=== PATIENT | male | born 1970 | race Caucasian/White ===

== ENCOUNTER 2020-07-26 07:31 | Day surgery (SDC) | payer BC, SELFPAY ==
[2020-07-18 20:03] VITALS: BMI 30.4
--- NOTE | 2020-07-25 08:35 | HO.ANESPROP2 ---
Documented by User: Nichole Quinteros 07/25/20 08:39 HPI - Anesthesia Eval Consult details Narrative: 50yo M for Colonoscopy [facility] Past Medical History Medical History [place] disease Back pain Insomnia Reactive depression Surgical History Surgical History No significant past surgical history Social History Social History Smoking Status: Never smoker Second Hand Smoke Exposure: No Use of substances other than those prescribed or required for medical reasons: No Advance Directives: No Advance Directives Information Provided: No Advance Directives on File: No Recently lost weight without trying: No Meds Allergies Allergy/AdvReac Type Severity Reaction Status Date / Time No Known Allergies Allergy Verified 07/18/20 19:50 Home Medications Medication Instructions Recorded Confirmed Type bupropion HCl 150 mg PO BID 07/18/20 07/18/20 History fludrocortisone 1 tab PO QAM 07/18/20 07/18/20 History hydrocortisone 30 mg PO DAILY 07/18/20 07/18/20 History Exam Exam Date and Time: July 25, 2020 0835 Height,Weight and Vital Signs: Height 6 ft 4 in Weight 113.398 kg Assessment and Plan Assessment Anesthesia Assessment: Chart Reviewed Documented by User: Dung Huber 07/26/20 07:48 [facility] Past Medical History Medical History [place] disease Back pain Insomnia Reactive depression Surgical History Surgical History No significant past surgical history Social History Social History Smoking Status: Never smoker Second Hand Smoke Exposure: No Use of substances other than those prescribed or required for medical reasons: No Advance Directives: No Advance Directives Information Provided: No Advance Directives on File: No Recently lost weight without trying: No Meds Allergies Allergy/AdvReac Type Severity Reaction Status Date / Time No Known Allergies Allergy Verified 07/18/20 19:50 Home Medications Medication Instructions Recorded Confirmed Type bupropion HCl 150 mg PO BID 07/18/20 07/18/20 History fludrocortisone 1 tab PO QAM 07/18/20 07/18/20 History hydrocortisone 30 mg PO DAILY 07/18/20 07/18/20 History Exam Airway Mallampati Class: II TM Dist: >3cm Neck ROM: Full
[2020-07-26 07:48] VITALS: BP 126/86; PULSE 77; RESP 16; TEMP 36.2; O2SAT 96
[2020-07-26] MEDS: Lactated Ringers 1,000 ML 100 ML IVCONT (07:58)
--- NOTE | 2020-07-26 08:27 | P.HPSUR_ITS ---
Pre-Procedural Eval Section B Chief Complaint: SCREENING Relevant Family History (Specify if Yes): No Relevant Social History: None Present Medications: see Short Stay Collaborative assessment Medical History: Significant History ([place] disease . Anxiety. Insomnia, unspecified type . Reactive depression. Nocturia. Psoriasis. ) History of Previous Operations: No relevant previous surgery Allergies: Allergies Allergy/AdvReac Type Severity Reaction Status Date / Time No Known Allergies Allergy Verified 07/18/20 19:50 Review of Systems Sugical H&P ROS: Negative: Constitution, Cardiovascular, Respiratory and Gastrointestinal Exam Surgical H&P Exam: Normal: Heart, Normal: Lungs, Normal: Extremities and Normal: Abdomen Plan Diagnosis/Plan: Unchanged I have reviewed the history and physical and performed a pertinent physical examination on my patient. No changes have occurred unless specified.
--- NOTE | 2020-07-26 08:27 | W.PM.OPN ---
Operative Note Operative Note Date of Service: 07/26/20 Narrative: Pre-op diagnosis: colon cancer screening Post-op diagnosis: other (Colon polyp, hemorrhoids) Procedure: COLONOSCOPY TILL CECUM WITH BIOPSY Consent: Indications for the procedure and potential complications of bleeding, perforation, reaction to medications and missed diagnosis were discussed with the patient and informed consent was obtained. Instrument: Olympus PCF H 190 L variable stiffness pediatric colonoscope Monitoring: Vital signs and clinical assessment, intermittent blood pressure monitoring, continuous EKG monitoring, Pulse oximetry and Carbon Dioxide monitoring were done throughout the procedure. Colon withdrawl time was 20 minutes. Procedure: The patient was placed in the left lateral decubitis position and pre-procedure medications were administered. After a digital rectal examination of the ano-rectum, the video colonoscope was inserted into the rectum and advanced through the colon to the cecum. The colonoscope was slowly withdrawn in a retrograde panoramic fashion and the colon mucosa was carefully examined including a retroflexed view of the rectum. Findings and interventions are described below. Procedure Difficulty: Without difficulty Findings: Terminal Ileum: Not evaluated Cecum: Normal Ascending Colon: A 4-5 mm sessile polyp in distal AC removed with a cold bx. Transverse Colon: Normal Descending Colon: Normal Sigmoid Colon: Normal Rectum: Normal Ano-rectum: Moderate internal hemorrhoids Colon preparation: Good after some irrigation Impression and Post Procedure Diagnosis: Colonoscopy Findings: One small polyps removed Moderate hemorrhoids on retroflexed exam. Plan: Await pathology results Patient has an appointment on 08/23/20 in the GI Clinic with RIVAS Corbett. Repeat Colonoscopy interval based on path results - in 5 years if polyp is adenomatous and 10 years if polyp is hyperplastic. Above findings were reviewed with the patient and colon polyps handout was given in the discharge area Surgeon: Cinthya Soto MD Anesthesia: MAC (Darlene Delarosa CRNA) Estimated blood loss (mL): 0 Pathology: other (A. AC polyp x 1) Condition: stable Disposition: PACU
[2020-07-26 09:10] VITALS: BP 123/64; PULSE 69; RESP 16; TEMP 36.1; O2SAT 94
[2020-07-26 09:25] VITALS: BP 118/53; PULSE 80; RESP 16; O2SAT 97
[2020-07-26 09:40] VITALS: BP 115/72; PULSE 75; RESP 16; TEMP 36.1; O2SAT 96
--- NOTE | 2020-07-26 10:08 | HO.POSTANES ---
Post Anesthesia Evaluation Post Anesthesia Evaluation Vital Signs: Vital Signs Temp Pulse Resp BP Pulse Ox 07/26/20 09:40 96.9 F 75 16 115/72 96 07/26/20 09:25 80 16 118/53 L 97 07/26/20 09:10 97.0 F 69 16 123/64 94 07/26/20 07:48 97.2 F 77 16 126/86 96 Anesthesia: Monitored Mental Status: Awake Pain Control: Satisfactory Nausea/Vomiting: None Hydration: Adequate Anesthesia-Related Issues: No Anes. Related Issues
== END 2020-07-26 10:05 | disposition home or self-care (01) ==
PROVIDERS: Visit Provider Internal Medicine Gastroenterology
PROC: 0DJD8ZZ Inspection of Lower Intestinal Tract, Via Natural or Artificial Opening Endoscopic (ICD-10-PCS; CPT 45378; principal; 2020-07-26 08:30)
DX: Z12.11 Encounter for screening for malignant neoplasm of colon (principal); D12.2 Benign neoplasm of ascending colon; K64.8 Other hemorrhoids; E27.1 Primary adrenocortical insufficiency; G47.00 Insomnia, unspecified; F32.9 Major depressive disorder, single episode, unspecified; Z79.52 Long term (current) use of systemic steroids; Z79.899 Other long term (current) drug therapy
CPT/HCPCS: 45380; 88305

== ENCOUNTER 2021-08-15 11:09 | Outpatient (REF) | payer BC, SELFPAY ==
[2021-08-15 13:45] LABS: MANUAL DIFF FLAG NO
[2021-08-15 13:51] LABS: Basophils Absolute Auto 0.1 X10*3/uL (0.0-0.2); Eosinophils Absolute Auto 0.2 X10*3/uL (0.0-0.4); Eosinophils Percent Auto 3.3 % (0-4); Hematocrit 45.8 % (42.0-52.0); Hemoglobin 15.6 g/dl (14.0-18.0); Imm Gran Abs Auto 0.04 X10*3/uL (0.00-0.03); Imm Gran Pct Auto 0.6 % (0.0-0.4); Lymphocytes Absolute Auto 2.7 X10*3/uL (1.2-4.9); Lymphocytes Percent Auto 39.2 % (20-40); Mean Corpuscular HGB Conc 34.1 g/dl (31.0-36.0); Mean Corpuscular Hemoglobin 28.7 pg (27.0-33.0); Mean Corpuscular Volume 84.2 fL (80.0-98.0); Mean Platelet Volume 9.8 fL (9.4-12.4); Monocytes Absolute Auto 0.9 X10*3/uL (0.1-1.2); Monocytes Percent Auto 12.4 % (2-11); Neutrophils Percent Auto 43.5 % (45-73); Platelet Count 257 X10*3/uL (160-400); Red Blood Count 5.44 X10*6/uL (4.60-5.80); Red Cell Distribution Width 11.9 % (11.0-16.0)
[2021-08-15 14:59] LABS: Alanine Aminotransferase 87 U/L (0-40); Alkaline Phosphatase 71 U/L (39-117); Anion Gap 11 (12-20); Aspartate Amino Transferase 184 U/L (5-37); Bilirubin Total 0.9 mg/dL (0.0-1.0); Blood Urea Nitrogen 18 mg/dL (9-16); Calcium 9.3 mg/dL (8.4-10.2); Carbon Dioxide 28 mmol/L (22-29); Chloride 102 mmol/L (96-108); Estimated Glomerular Filt Rate > 60; Glucose Random 90 mg/dL (60-115); Potassium 4.3 mmol/L (3.3-5.1); Sodium 137 mmol/L (135-145); Total Protein 6.9 g/dL (6.5-8.0)
== END 2021-08-15 11:10 | disposition home or self-care (01) ==
LOC: HO.HMGCLDS 11:09
PROVIDERS: PCP Internal Medicine; Visit Provider Internal Medicine
DX: E27.1 Primary adrenocortical insufficiency (principal); F33.9 Major depressive disorder, recurrent, unspecified
CPT/HCPCS: 36415; 80053; 85025

== ENCOUNTER 2022-08-28 13:26 | Outpatient (REF) | payer BC, SELFPAY ==
[2022-08-28 16:54] LABS: Alanine Aminotransferase 25 U/L (0-40); Albumin Level 4.3 g/dL (3.5-5.0); Alkaline Phosphatase 71 U/L (39-117); Anion Gap 14 (12-20); Aspartate Amino Transferase 25 U/L (5-37); Blood Urea Nitrogen 19 mg/dL (9-16); Calcium 9.2 mg/dL (8.4-10.2); Carbon Dioxide 26 mmol/L (22-29); Chloride 101 mmol/L (96-108); Estimated Glomerular Filt Rate > 60; Glucose Random 85 mg/dL (60-115); Potassium 4.7 mmol/L (3.3-5.1); Sodium 136 mmol/L (135-145); Total Protein 7.1 g/dL (6.5-8.0)
== END 2022-08-28 13:27 | disposition home or self-care (01) ==
LOC: HO.HMGCLDS 13:26
PROVIDERS: PCP Internal Medicine; Visit Provider Internal Medicine
DX: E27.1 Primary adrenocortical insufficiency (principal); F33.9 Major depressive disorder, recurrent, unspecified; R79.89 Other specified abnormal findings of blood chemistry
CPT/HCPCS: 36415; 80053

== ENCOUNTER → 2022-11-01 10:36 | Outpatient (BNVA) | payer BC, SELFPAY | PROVIDERS: PCP Internal Medicine; Visit Provider Nurse Practitioner Family | DX: Z13.89 Encounter for screening for other disorder (principal) ==

== ENCOUNTER 2023-01-03 15:58 | Outpatient (REF) | payer BC, SELFPAY ==
--- NOTE | ~2023-01-03 | MR_ITS ---
EXAMINATION: MR BRAIN WITHOUT AND WITH CONTRAST CLINICAL INFORMATION: Headache, new onset visual aura, tinnitus, hearing loss COMPARISON: None. TECHNIQUE: Multiplanar, multisequence imaging was obtained without and with intravenous contrast. Intravenous contrast: 10 mL Gadavist. FINDINGS: Some sequences are motion degraded. The VII and VIII cranial nerve complexes are normal in course and caliber. No signal abnormality is visualized within the inner ear structures on the precontrast axial T1-weighted sequence. Fluid signal is preserved within the cochlea, semicircular canals, and vestibule on the high-resolution axial FIESTA sequence. There is no abnormal labyrinthine or intracanalicular enhancement on postcontrast imaging. No cerebellopontine angle lesion. No acute infarct. No acute intracranial hemorrhage or extra-axial fluid collection. The ventricles and sulci are normal in size and configuration without significant volume loss or hydrocephalus. Incidental cavum septum pellucidum et vergae. No abnormal intraparenchymal or leptomeningeal enhancement. No mass effect or herniation pattern. Normal appearance of the midline structures. Normal intracranial arterial and dural venous sinus flow voids. The orbits are grossly unremarkable. Patchy paranasal sinus mucosal disease. Retention cyst within the left paramedian nasopharynx and additional smaller nasopharyngeal retention cyst. A few bilateral mastoid air cells are opacified. Partially imaged soft tissue along the base of tongue may reflect lingual tonsillar hyperplasia however can be correlated with direct inspection to exclude underlying mucosal lesion (image 15, series 3). The craniocervical junction is intact. Normal marrow signal. MR/MR head/brain wo/w con IMPRESSION: No retrocochlear pathology. No acute intracranial process or abnormal intracranial enhancement. Partially imaged soft tissue along the base of tongue may reflect lingual tonsillar hyperplasia however can be correlated with direct inspection to exclude underlying mucosal lesion (image 15, series 3).
== END 2023-01-03 15:59 | disposition home or self-care (01) ==
LOC: HO.MRI 15:58
PROVIDERS: PCP Internal Medicine; Visit Provider Nurse Practitioner Family
DX: R51.9 Headache, unspecified (principal); H53.9 Unspecified visual disturbance; H91.90 Unspecified hearing loss, unspecified ear; H93.19 Tinnitus, unspecified ear
CPT/HCPCS: 70553; A9585

== ENCOUNTER → 2023-01-17 15:06 | Outpatient (BNVA) | payer BC, SELFPAY | PROVIDERS: PCP Internal Medicine; Visit Provider Nurse Practitioner Family ==

== ENCOUNTER 2023-03-05 15:29 | Outpatient (AMB) | payer BC, SELFPAY ==
[2023-03-05 15:43] VITALS: BP 128/72; PULSE 88; O2SAT 95
--- NOTE | 2023-03-05 15:43 | MHC.PC.OV ---
Vital Signs 03/05/23 15:43 Height 6 ft 3 in BP 128/72 Blood Pressure Location Lt brachial Position Sitting Pulse 88 Pulse Source Pulse Oximeter Pulse Oximetry (%) 95 Oxygen Delivery Method Room Air Intake Visit Reasons: Annual PE Allergies No Known Allergies Allergy (Verified 03/05/23 15:43) Medication List - Last Reconciled 03/05/23 by Ayaan Smalls MD bupropion HCl 150 mg PO BID 90 days fludrocortisone 0.1 mg PO QAM 7 days Tobacco use date assessed: 03/05/23 Dental Screening Dental Screen Date: 03/05/23 Did you have a dental visit in the last 12 months?: Yes Did you have a dental problem in the last 6 months where you did not have access to dental care?: No Was dental information given to patient?: No HPI Annual PE HPI Details Physical exam appointment Colonoscopy was 3 years ago at [facility] next 1 will be in 2024 as but patient I was not able to locate the report. Seeing Dr. Plummer architectural draftsman for [place] disease management Neurology [facility] for migraine and possible sleep apnea Patient was referred to ENT due to abnormal finding back off his tongue on MRI brain. Awaiting appointment Lab order placed to be done fasting Depression is stable patient is on bupropion 150 mg b.i.d. that is only medication through PCP office Patient also have a chronic history of tinnitus and is getting disability through [facility] based on tinnitus. Follow-up 6 months physical exam 1 year [facility] Medical History [place] disease Addisons disease Back pain Insomnia Reactive depression Surgical History No significant past surgical history Social History Housing: House Alcohol intake: current Alcohol intake frequency: a few times a month Patient Tobacco Use Status: Never used Tobacco (23 years ) Years Smoked: 10 years e-Cigarette/Vaping Use: Never Used Second Hand Smoke Exposure: No service: Yes Current occupational status: employed Cognitive needs: No Hearing needs: No Vision needs: No Questionnaire PHQ-9 Over the last 2 weeks, how often have you been bothered by any of the following problems? 64695 - PHQ-9 Billing: Patient declined-do not bill Source: Developed by Drs. Jaren Dos Santos, Trina Hernandez, Wilman Mitchell and colleagues, with an educational vin from [employer]. Thrive Questionnaire Date Thrive assessed: 09/19/22 AUDIT C Alcohol Use Questionnaire (AUDIT-C) 1. How often do you have a drink containing alcohol?: 2-3 times a week 2. How many drinks containing alcohol do you have on a typical day when you are drinking?: 1 or 2 3. How often do you have six or more drinks on one occasion?: Never Total Score: 3 Score Reviewed/Action Taken: Yes ANTONELLA-7 AMB Questionnaire ANTONELLA-7 Date ANTONELLA - 7 assessed: 09/19/22 Source: Developed by Drs. Jaren Dos Santos, Trina Hernandez, Wilman Mitchell and colleagues, with an educational vin from [employer]. Review of Systems Const Denies chills, Denies fever(s) and Denies headache(s) Eyes Denies blurry vision ENT Denies headache(s), Denies nasal discharge, Denies nasal obstruction, Denies odynophagia and Denies sinus pain Card Denies chest pain at rest and Denies chest pain with activity Resp Denies cough and Denies hemoptysis GI Denies diarrhea, Denies odynophagia, Denies vomiting and Denies hematemesis Reports as per HPI Musc Denies abnormal gait Skin/Breast Reports as per HPI Neuro Denies Neuro-related abnormal movements, Denies Abnormal speech present, Denies abnormal gait, Denies headache(s) and Denies Sensory deficit (Neuro) Psych Denies mood swings and Denies paranoia Endo Reports as per HPI Darian/Lymph Reports as per HPI Aller/Immun Reports as per HPI Physical exam (Primary Care) Vital Signs: Last Vital Signs Pulse 88 03/05/23 15:43 BP 128/72 03/05/23 15:43 Pulse Ox 95 03/05/23 15:43 Oxygen Delivery Method Room Air 03/05/23 15:43 Tobacco/Smoking Status: Tobacco use Status Tobacco use date assessed 03/05/23 03/05/23 15:44 Patient Tobacco Use Status Never used Tobacco (23 years 03/05/23 15:44 ) e-Cigarette/Vaping Use Never Used 03/05/23 15:44 Thrive Assessment: Date of Thrive Assessment Date Thrive assessed 09/19/22 03/05/23 15:44 Const General: cooperative, comfortable and no acute distress Orientation/consciousness: patient oriented x3 HENMT Head: Yes normocephalic and Yes atraumatic Eyes General: appearance normal, both eyes and all related structures Pupils: Equal, round and reactive pupils present EOM: EOMs intact bilaterally Neck Neck: Yes supple and No lymphadenopathy Thyroid: Thyroid normal Lymphatic: no lymphadenopathy noted Resp Effort & Inspection: normal respiratory effort and able to speak in complete sentences Auscultation: clear to auscultation bilaterally Cardio Heart sounds: S1 normal heart sound present and S2 normal heart sound present GI Palpation (GI): Soft to palpation and nontender Auscultation: normal bowel sounds General: Yes no CVA tenderness Back/Spine/Pelvis Back: no CVA tenderness Skin General skin exam: elasticity normal and turgor normal Neuro General: patient oriented x3 and gait normal Cranial nerves: Yes Equal, round and reactive pupils present Speech: No Abnormal speech present Sensory Exam: No Sensory deficit (Neuro) Coordination: tandem gait normal and Romberg test negative Extrem General: Yes normal exam except as noted and No edema Assessment and Plan Assessment & Plan (1) Encounter for general adult medical examination with abnormal findings: Code(s): Z00.01 - Encounter for general adult medical examination with abnormal findings (2) Major depression, recurrent: Code(s): F33.9 - Major depressive disorder, recurrent, unspecified (3) [place] disease: Comment: Managed by a specialist Code(s): E27.1 - Primary adrenocortical insufficiency (4) Migraine headache with aura: Code(s): G43.109 - Migraine with aura, not intractable, without status migrainosus (5) Tinnitus: Code(s): H93.19 - Tinnitus, unspecified ear Plan Physical exam appointment Colonoscopy was 3 years ago at [facility] next 1 will be in 2024 as but patient I was not able to locate the report. Seeing Dr. Plummer architectural draftsman for [place] disease management Neurology [facility] for migraine and possible sleep apnea Patient was referred to ENT due to abnormal finding back off his tongue on MRI brain. Awaiting appointment Lab order placed to be done fasting Depression is stable patient is on bupropion 150 mg b.i.d. that is only medication through PCP office Patient also have a chronic history of tinnitus and is getting disability through [facility] based on tinnitus. Follow-up 6 months physical exam 1 year Orders: Orders Comprehensive Collins. Panel Fast Today E27.1 - Primary adrenocortical insufficiency, F33.9 - Major depressive disorder, recurrent, unspecified, G43.109 - Migraine with aura, not intractable, without status migrainosus, Z00.01 - Encounter for general adult medical examination with abnormal findings Ayaan Smalls MD Lipid Panel Today E27.1 - Primary adrenocortical insufficiency, F33.9 - Major depressive disorder, recurrent, unspecified, G43.109 - Migraine with aura, not intractable, without status migrainosus, Z00.01 - Encounter for general adult medical examination with abnormal findings Ayaan Smalls MD TSH reflex Free T4 Today E27.1 - Primary adrenocortical insufficiency, F33.9 - Major depressive disorder, recurrent, unspecified, G43.109 - Migraine with aura, not intractable, without status migrainosus, Z00.01 - Encounter for general adult medical examination with abnormal findings Ayaan Smalls MD Complete Blood Count Auto Diff Today E27.1 - Primary adrenocortical insufficiency, F33.9 - Major depressive disorder, recurrent, unspecified, G43.109 - Migraine with aura, not intractable, without status migrainosus, Z00.01 - Encounter for general adult medical examination with abnormal findings Ayaan Smalls MD Medications: New hydrocortisone 10 mg PO ONCE fludrocortisone 0.05 mg PO DAILY Discontinued fludrocortisone Discontinued Reason: Doctor's Order 0.1 mg PO QAM 7 tabs 0RF 7 days Ayaan Smalls MD Coding Level of Care Code Est Pt Prev Care 40-64y(09180) Diagnoses Encounter for general adult medical examination with abnormal findings Z00.01 Major depression, recurrent F33.9 [place] disease E27.1 Migraine headache with aura G43.109 Tinnitus H93.19
== END 2023-03-05 16:16 | disposition home or self-care (01) ==
PROVIDERS: Visit Provider Internal Medicine
DX: Z00.01 Encounter for general adult medical examination with abnormal findings (principal); F33.9 Major depressive disorder, recurrent, unspecified; E27.1 Primary adrenocortical insufficiency; G43.109 Migraine with aura, not intractable, without status migrainosus; H93.19 Tinnitus, unspecified ear
CPT/HCPCS: 99396

== ENCOUNTER 2023-04-04 08:29 | Outpatient (AMB) | payer BC, SELFPAY ==
--- NOTE | 2023-04-04 08:26 | A.OFFPC_ITS ---
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 that is only medication through PCP office how ever before the medication patient has been suicidal as well, as per history forms filled [facility] Medical History [place] disease [place] disease Back pain Insomnia Reactive depression Surgical History No significant past surgical history Social History Housing: House Alcohol intake: current Alcohol intake frequency: a few times a month Patient Tobacco Use Status: Never used Tobacco (23 years ) Years Smoked: 10 years e-Cigarette/Vaping Use: Never Used Second Hand Smoke Exposure: No service: Yes Current occupational status: employed Cognitive needs: No Hearing needs: No Vision needs: No Questionnaire Thrive Questionnaire Date Thrive assessed: 09/19/22 AUDIT C Alcohol Use Questionnaire (AUDIT-C) 1. How often do you have a drink containing alcohol?: Never 3. How often do you have six or more drinks on one occasion?: Never Total Score: 0 Score Reviewed/Action Taken: Yes ANTONELLA-7 AMB Questionnaire ANTONELLA-7 Date ANTONELLA - 7 assessed: 09/19/22 Source: Developed by Drs. Jaren Dos Santos, Trina Hernandez, Wilman Mitchell and colleagues, with an educational vin from [employer]. Review of Systems Const Denies chills, Denies fever(s) and Denies headache(s) Eyes Denies blurry vision ENT Denies headache(s), Denies nasal discharge, Denies nasal obstruction, Denies odynophagia and Denies sinus pain Card Denies chest pain at rest and Denies chest pain with activity Resp Denies cough and Denies hemoptysis GI Denies diarrhea, Denies odynophagia, Denies vomiting and Denies hematemesis Reports as per HPI Skin/Breast Reports as per HPI Neuro Denies Neuro-related abnormal movements, Denies Abnormal speech present, Denies headache(s) and Denies Sensory deficit (Neuro) Endo Reports as per HPI Darian/Lymph Reports as per HPI Aller/Immun Reports as per HPI Physical exam (Primary Care) Tobacco/Smoking Status: Tobacco use Status Tobacco use date assessed 04/04/23 04/04/23 08:27 Patient Tobacco Use Status Never used Tobacco (23 years 04/04/23 08:27 ) e-Cigarette/Vaping Use Never Used 04/04/23 08:27 Thrive Assessment: Date of Thrive Assessment Date Thrive assessed 09/19/22 04/04/23 08:27 Neuro Speech: No Abnormal speech present Sensory Exam: No Sensory deficit (Neuro) Telehealth Telehealth Location of provider rendering services: practice address Location of patient: address on file Patient Identification confirmed using: Name, : Yes Telehealth method: video Patient verbally consented to treatment: Yes Patient verbally consented to billing insurance company: Yes Patient informed of any privacy concerns related to visit: Yes Assessment and Plan Assessment & Plan (1) Insomnia: Code(s): G47.00 - Insomnia, unspecified (2) Nervous: Code(s): R45.0 - Nervousness (3) [place] disease: Comment: Managed by a specialist Code(s): E27.1 - Primary adrenocortical insufficiency (4) Migraine headache with aura: Code(s): G43.109 - Migraine with aura, not intractable, without status migrainosus (5) Tinnitus: Code(s): H93.19 - Tinnitus, unspecified ear (6) Major depression, recurrent: Code(s): F33.9 - Major depressive disorder, recurrent, unspecified Plan Telemedicine apt to fill [facility] forms Patient suffer from depression since he has started having ringing in his ears which is continuous , also causing difficulty sleeping at night 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 that is only medication through PCP office how ever before the medication patient has been suicidal as well, as per history forms filled Coding Level of Care Code Tele Est Pt Level 4 (72539) Diagnoses Insomnia G47.00 Nervous R45.0 [place] disease E27.1 Migraine headache with aura G43.109 Tinnitus H93.19 Major depression, recurrent F33.9 Time Spent (min) 30 Comment 15 with patient 15 paperwork/chart
== END 2023-04-04 10:28 | disposition home or self-care (01) ==
LOC: HO.HMGC 08:29
PROVIDERS: PCP Internal Medicine; Visit Provider Internal Medicine
DX: G43.109 Migraine with aura, not intractable, without status migrainosus (principal); E27.1 Primary adrenocortical insufficiency; F33.9 Major depressive disorder, recurrent, unspecified; G47.00 Insomnia, unspecified; R45.0 Nervousness; H93.19 Tinnitus, unspecified ear
CPT/HCPCS: 99214

== ENCOUNTER 2023-05-03 15:42 | Outpatient (AMB) | payer BC, SELFPAY ==
--- NOTE | 2023-05-03 15:46 | A.OFFVIS_ITS ---
Intake Vital Signs 05/03/23 15:47 Height 6 ft 3 in Weight 257 lb BMI 32.1 Intake Visit Reasons: 2m follow up migraines-LVM Intake Note: Patient presents for 2 month follow up migraines. patient states Just still regular migraines I heard about a new medication called nurtec. Allergies No Known Allergies Allergy (Verified 05/03/23 15:49) Medication List - Last Reconciled 05/03/23 by ANGEL Guardado bupropion HCl 150 mg PO BID 90 days fludrocortisone 0.05 mg PO DAILY hydrocortisone 10 mg PO ONCE HPI HPI Comments History of Present Illness Details 53-yr-old male presents for f/u visit. Pt denies any significant interval medical changes. Today, we reviewed his headache history again. Today he endorses that he has had headache since as long as he can recall- since college/ service days. And that the headaches became more sever approx 14 months calixto. He is having 1 migraine day per week and constant head pressure. The headcahes are a/w significant photophobia. He is having chronic tinnitus, poor sleep, depression. He is finding himself staying up late watching TV. When he is up at night, he can be hyperalert. Then he is tired, which makes him more prone to headache. The tinnitus makes it difficult to sleep or fall back asleep, and is increasingly bothersome. The Sumatriptan was not helpful. The Nurtec sample- took the edge off but was not fully effective PFSH Medical History Manan disease Addisons disease Back pain Insomnia Reactive depression Surgical History No significant past surgical history Social History Housing: House Alcohol intake: current Alcohol intake frequency: a few times a month Patient Tobacco Use Status: Never used Tobacco (23 years ) Years Smoked: 10 years e-Cigarette/Vaping Use: Never Used Second Hand Smoke Exposure: No service: Yes Current occupational status: employed Cognitive needs: No Hearing needs: No Vision needs: No Review of Systems Const All systems reviewed & are unremarkable except as noted in HPI and below Physical Exam Vital Signs: BMI result Body Mass Index 32.1 Const General: cooperative and no acute distress Orientation/consciousness: patient oriented x3 HEENT Head: Yes normocephalic Resp Effort & Inspection: normal respiratory effort and able to speak in complete sentences Neuro General: patient oriented x3, gait normal and CN's II-XI intact bilaterally Cognition (Neuro): normal cognition Motor exam (neuro): 5/5 motor strength present throughout Psych Appearance: grossly normal Mental Status: mental status grossly normal Speech and movement: Normal speech and movement present Affect: normal affect Attitude: cooperative Thought process: Normal thought process present Thought content: Normal thought content present Insight: Good insight present (Psych) Judgement: Good judgement present (Psych) Assessment & Plan Assessment & Plan (1) Migraine headache with aura: Code(s): G43.109 - Migraine with aura, not intractable, without status migrainosus (2) Tinnitus: Code(s): H93.19 - Tinnitus, unspecified ear (3) Insomnia: Code(s): G47.00 - Insomnia, unspecified Plan Will f/u on referral pt to ENT. Future considerations: EEG, HST ([facility] not [facility]).. ? For acute headache treatment: Hold Sumatriptan 100mg tab. Trial Rizatriptan prn. Previous acute migraine medication trials: Sumatriptan 100mg tab- not effective. Nurtec- not fully effective. Acute migraine medication contraindications: None Future consideration: Ubrelvy ? For headache prevention medication: Trial Gamma Core 2 2-minute treatments TID, may use prn as well. Future considerations- Mag, B2, Amitriptyline. Previous migraine prevention medication trials: None Migraine prevention medication contraindications: None at this time For Sleep: Pt may benefit from reading/listening to Say [facility] to Insomnia by Dr Dg Howard or similar CBTi resources. For tinnitus: Advised pt to speak w/ her [facility]- pt may benefit from CBT or bio feedback/neurofeedback. f/u in 3-4 months or sooner prn. Medications: New rizatriptan max 2 tabs per day or 4 tabs per week 5 - 10 mg (0.5 - 1 x 10 mg) PO Q2H 21 days PRN 12 tabs 3RF migraine headache Coding Level of Care Code Est Pt Level 4 (26675) Diagnoses Migraine headache with aura G43.109 Tinnitus H93.19 Insomnia G47.00
[2023-05-03 15:47] VITALS: BMI 32.1
== END 2023-05-03 16:28 | disposition home or self-care (01) ==
PROVIDERS: PCP Internal Medicine; Visit Provider Nurse Practitioner Family
DX: G43.109 Migraine with aura, not intractable, without status migrainosus (principal); H93.19 Tinnitus, unspecified ear; G47.00 Insomnia, unspecified
CPT/HCPCS: 99214

== ENCOUNTER → 2023-05-03 15:42 | Outpatient (BNVA) | payer BC, SELFPAY | PROVIDERS: PCP Internal Medicine; Visit Provider Nurse Practitioner Family ==

== ENCOUNTER 2023-09-12 08:33 | Outpatient (AMB) | payer BC, SELFPAY ==
--- NOTE | 2023-09-12 09:39 | MHC.PC.OV ---
Vital Signs 09/12/23 09:41 Height 6 ft 3 in Intake Visit Reasons: 6 month f/u~[phone] Allergies No Known Allergies Allergy (Verified 09/12/23 09:40) Medication List - Last Reconciled 09/12/23 by Ayaan Smalls MD bupropion HCl 150 mg PO BID 90 days fludrocortisone 0.05 mg PO DAILY hydrocortisone 10 mg PO ONCE rizatriptan 5 - 10 mg (0.5 - 1 x 10 mg) PO Q2H PRN 21 days Tobacco use date assessed: 09/12/23 Dental Screening Dental Screen Date: 09/12/23 Did you have a dental visit in the last 12 months?: Yes Did you have a dental problem in the last 6 months where you did not have access to dental care?: No Was dental information given to patient?: Patient has dentist HPI 6 month f/u~[phone] HPI Details Patient is 53-year-old gentleman this is a telemedicine video conference follow-up Patient usually have a follow-up with me every 6 month Depression: Stable with bupropion 150 mg b.i.d. Patient is still struggling with tinnitus both ears which is causing difficulty sleeping at night Patient feels that it is because of the lack of restful sleep he feels tired and his migraine act up. He is thinking of joining of pain management group at [facility]. Seeing Dr. Plummer doctor of veterinary medicine for Windsor disease management [facility] for migraine and possible sleep apnea He still has not seen ENT for the evaluation of lesion on the back of his tongue I have given him the telephone number that he can call and book is on appointment Lab order was placed in March, still not done patient was reminded He would like to see a store warehouse associate for skin cancer screening, referral placed Patient have appointment in March for physical examination [facility] Medical History Addisons disease Insomnia Reactive depression Back pain Windsor disease Surgical History No significant past surgical history Social History Housing: House Alcohol intake: current Alcohol intake frequency: a few times a month Patient Tobacco Use Status: Never used Tobacco (23 years ) Years Smoked: 10 years e-Cigarette/Vaping Use: Never Used Second Hand Smoke Exposure: No service: Yes Current occupational status: employed Cognitive needs: No Hearing needs: No Vision needs: No Questionnaire PHQ-9 Over the last 2 weeks, how often have you been bothered by any of the following problems? 1. Little interest or pleasure in doing things: several days 2. Feeling down, depressed, or hopeless: several days 3. Trouble falling or staying asleep, or sleeping too much: more than half the days 4. Feeling tired or having little energy: more than half the days 5. Poor appetite or overeating: nearly every day 6. Feeling bad about yourself - or that you are a failure or have let yourself or your family down: several days 7. Trouble concentrating on things, such as reading the newspaper or watching television: several days 8. Moving or speaking so slowly that other people could have noticed. Or the opposite - being so fidgety or restless that you have been moving around a lot more than usual: several days 9. Thoughts that you would be better off or of hurting yourself in some way: several days Total score: 13 Depression Screening Interpretation: Positive Depression Screening Follow-up: Existing condition and In treatment Depression Screening Done: Yes 41937 - PHQ-9 Billing: Yes Source: Developed by Drs. Jaren Dos Santos, Trina Hernandez, Wilman Mitchell and colleagues, with an educational vin from [employer]. Thrive Questionnaire Date Thrive assessed: 09/12/23 I am a: Patient What is your living situation today?: I have a steady place to live Within the past 12 months, did the food you bought not last and you didn't have the money to get more?: Never true Within the past 12 months, did you worry whether your food would run out before you got money to buy more?: Never true Do you have trouble paying for medicines?: No Do you have trouble getting transportation to medical appointments?: No Do you have trouble paying your heating and electricity bill?: No Do you have trouble taking care of your child, family member or friend?: No Do you have trouble with day-to-day activities such as bathing, preparing meals, shopping, managing finances, etc.?: No Are you currently unemployed and looking for a job?: No Are you interested in more education?: No Please select the resources that you would like help with: None Currently or been in a relationship where the following occur: no concerns reported THRIVE Score: 0 AUDIT C Alcohol Use Questionnaire (AUDIT-C) 1. How often do you have a drink containing alcohol?: 2-3 times a week 2. How many drinks containing alcohol do you have on a typical day when you are drinking?: 1 or 2 3. How often do you have six or more drinks on one occasion?: Never Total Score: 3 Score Reviewed/Action Taken: Yes ANTONELLA-7 AMB Questionnaire ANTONELLA-7 Date ANTONELLA - 7 assessed: 09/12/23 Feeling nervous, anxious, or on edge: 1 = Several days Not being able to stop or control worryin = Several days Worrying too much about different things: 1 = Several days Trouble relaxin = Several days Being so restless that it is hard to sit still: 1 = Several days Becoming easily annoyed or irritable: 1 = Several days Feeling afraid as if something awful might happen: 1 = Several days Total ANTONELLA-7 score (0-4 normal; 5-9 mild; 10-14 moderate; 15-21 severe): 7 Source: Developed by Drs. Jaren Dos Santos, Trina Hernandez, Wilman Mitchell and colleagues, with an educational vin from [employer]. ANTONELLA-7 Assessment Billing ANTONELLA-7 Assessment Tool: ANTONELLA-7 Assessment 03893 (in treatment) Review of Systems Const Denies chills and Denies fever(s) ENT Denies epistaxis and Denies nasal discharge Card Denies chest pain Resp Denies chest congestion, Denies cough and Denies hemoptysis GI Denies diarrhea and Denies nausea Skin/Breast Denies rash Neuro Reports no additional complaints Psych Reports no additional complaints Endo Reports no additional complaints Physical exam (Primary Care) Tobacco/Smoking Status: Tobacco use Status Tobacco use date assessed 09/12/23 09/12/23 09:41 Patient Tobacco Use Status Never used Tobacco (23 years 09/12/23 09:41 ) e-Cigarette/Vaping Use Never Used 09/12/23 09:41 PHQ-9: PHQ-9 Score PHQ-9: Total score 13 09/12/23 09:51 Depression Screening Interpretation: Positive Depression Screening Follow-up: Existing condition and In treatment Thrive Assessment: Date of Thrive Assessment Date Thrive assessed 09/12/23 09/12/23 09:51 Currently or been in a relationship where the following occur: no concerns reported Telehealth Telehealth Location of provider rendering services: practice address Location of patient: address on file Patient Identification confirmed using: Name, : Yes Telehealth method: video Patient verbally consented to treatment: Yes Patient verbally consented to billing insurance company: Yes Patient informed of any privacy concerns related to visit: Yes Assessment and Plan Assessment & Plan (1) Insomnia: Code(s): G47.00 - Insomnia, unspecified Qualifiers: Insomnia type: due to medical condition Qualified Code(s): G47.01 - Insomnia due to medical condition (2) [place] disease: Comment: Managed by a specialist Code(s): E27.1 - Primary adrenocortical insufficiency (3) Migraine headache with aura: Code(s): G43.109 - Migraine with aura, not intractable, without status migrainosus Qualifiers: Status migrainosus presence: without status migrainosus Intractability: intractable Qualified Code(s): G43.119 - Migraine with aura, intractable, without status migrainosus (4) Tinnitus: Code(s): H93.19 - Tinnitus, unspecified ear Qualifiers: Laterality: bilateral Qualified Code(s): H93.13 - Tinnitus, bilateral (5) Major depression, recurrent: Code(s): F33.9 - Major depressive disorder, recurrent, unspecified Qualifiers: Active/Remission status: in full remission Qualified Code(s): F33.42 - Major depressive disorder, recurrent, in full remission (6) 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 Patient is still struggling with tinnitus both ears which is causing difficulty sleeping at night Patient feels that it is because of the lack of restful sleep he feels tired and his migraine act up. He is thinking of joining of pain management group at [facility]. Seeing Dr. Plummer doctor of veterinary medicine for Manan disease management Neurology [facility] for migraine and possible sleep apnea He still has not seen ENT for the evaluation of lesion on the back of his tongue I have given him the telephone number that he can call and book is on appointment Lab order was placed in March, still not done patient was reminded He would like to see a store warehouse associate for skin cancer screening, referral placed Patient have appointment in March for physical examination Orders: Referrals Dermatology Referral Z12.83 - Encounter for screening for malignant neoplasm of skin Medications: Refilled bupropion HCl 150 mg PO BID 90 days 180 caps 1RF Coding Level of Care Code Tele Est Pt Level 4 (55359) Diagnoses Insomnia due to medical condition G47.01 Insomnia type: due to medical condition [place] disease E27.1 Intractable migraine with aura without status migrainosus G43.119 Status migrainosus presence: without status migrainosus Intractability: intractable Tinnitus of both ears H93.13 Laterality: bilateral Recurrent major depressive disorder, in full remission F33.42 Active/Remission status: in full remission Tongue abnormality Q38.3 Additional Codes ANTONELLA-7 Assessment Billing - ANTONELLA-7 Assessment Tool: ANTONELLA-7 Assessment 04716 ([id number]) Time Spent (min) 30 Comment 3 pre visit, 20th patient, 7 minute charting coordination of care
== END 2023-09-12 11:51 | disposition home or self-care (01) ==
LOC: HO.HMGC 08:33
PROVIDERS: PCP Internal Medicine; Visit Provider Internal Medicine
DX: G47.01 Insomnia due to medical condition (principal); E27.1 Primary adrenocortical insufficiency; F33.42 Major depressive disorder, recurrent, in full remission; G43.119 Migraine with aura, intractable, without status migrainosus; H93.13 Tinnitus, bilateral; Q38.3 Other congenital malformations of tongue
CPT/HCPCS: 99214

== ENCOUNTER 2024-03-13 15:28 | Outpatient (AMB) | payer OTHER, SELFPAY ==
[2024-03-13 15:34] VITALS: BP 146/98; PULSE 85; O2SAT 96; BMI 30.8
--- NOTE | 2024-03-13 15:34 | A.OFFPC_ITS ---
Vital Signs 3 03/13/24 15:34 Height 6 ft 3 in Weight 246 lb 7 oz BMI 30.8 BP 146/98 H Blood Pressure Location Lt brachial Position Sitting Pulse 85 Pulse Source Pulse Oximeter Pulse Oximetry (%) 96 Oxygen Delivery Method Room Air Intake Visit Reasons: Annual PE Allergies No Known Allergies Allergy (Verified 03/13/24 15:38) Medication List - Last Reconciled 03/13/24 by Ayaan Smalls MD bupropion HCl SR 150 mg PO BID 90 days fludrocortisone 0.05 mg PO DAILY hydrocortisone 10 mg PO ONCE rizatriptan 5 - 10 mg (0.5 - 1 x 10 mg) PO Q2H PRN 21 days Tobacco use date assessed: 03/13/24 Dental Screening Dental Screen Date: 03/13/24 Did you have a dental visit in the last 12 months?: No Did you have a dental problem in the last 6 months where you did not have access to dental care?: No Was dental information given to patient?: Patient has dentist HPI Annual PE 2 HPI0 Details Physical exam appointment Patient says that when he is working in his garage sometimes he gets twinges in his chest He is concerned about condition of his heart We did the EKG today which shows normal sinus rhythm 78 beats per minute no acute ST-T findings He is now using CPAP machine as well Psoriasis: Right knee clobetasol cream sent to be used as needed Patient have limitation in range of motion of right shoulder which is chronic His blood pressure is slightly elevated today I would recommend to start monitoring it at home and keep a log Colonoscopy was 3 years ago at [facility] next 1 will be in [address] 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 that is only medication through PCP office Patient also have a chronic history of tinnitus and is [facility]. Follow-up 6 months physical exam 1 year [facility] Medical History Addisons disease Insomnia Reactive depression Back pain [place] disease Surgical History No significant past surgical history Social History Housing: House Alcohol intake: current Alcohol intake frequency: a few times a month Patient Tobacco Use Status: Never used Tobacco (23 years ) Years Smoked: 10 years e-Cigarette/Vaping Use: Never Used Second Hand Smoke Exposure: No service: Yes Current occupational status: employed Cognitive needs: No Hearing needs: No Vision needs: No Questionnaire PHQ-9 Over the last 2 weeks, how often have you been bothered by any of the following problems? 1. Little interest or pleasure in doing things: several days 2. Feeling down, depressed, or hopeless: several days 3. Trouble falling or staying asleep, or sleeping too much: nearly every day 4. Feeling tired or having little energy: more than half the days 5. Poor appetite or overeating: not at all 6. Feeling bad about yourself - or that you are a failure or have let yourself or your family down: several days 7. Trouble concentrating on things, such as reading the newspaper or watching television: several days 8. Moving or speaking so slowly that other people could have noticed. Or the opposite - being so fidgety or restless that you have been moving around a lot more than usual: not at all 9. Thoughts that you would be better off or of hurting yourself in some way: not at all Total score: 9 Depression Screening Interpretation: Positive Depression Screening Follow-up: Existing condition and In treatment Depression Screening Done: Yes 63871 - PHQ-9 Billing: Yes Source: Developed by Drs. Jaren Dos Santos, Trina Hernandez, Wilman Mitchell and colleagues, with an educational vin from [employer]. Thrive Questionnaire Date Thrive assessed: 03/13/24 I am a: Patient What is your living situation today?: I have a steady place to live Within the past 12 months, did the food you bought not last and you didn't have the money to get more?: Never true Within the past 12 months, did you worry whether your food would run out before you got money to buy more?: Never true Do you have trouble paying for medicines?: No Do you have trouble getting transportation to medical appointments?: No Do you have trouble paying your heating and electricity bill?: No Do you have trouble taking care of your child, family member or friend?: No Do you have trouble with day-to-day activities such as bathing, preparing meals, shopping, managing finances, etc.?: No Are you currently unemployed and looking for a job?: No Are you interested in more education?: No Please select the resources that you would like help with: Housing/Correction Currently or been in a relationship where the following occur: No concerns reported THRIVE Score: 0 AUDIT C Alcohol Use Questionnaire (AUDIT-C) 1. How often do you have a drink containing alcohol?: 4 or more times a week 2. How many drinks containing alcohol do you have on a typical day when you are drinking?: 1 or 2 3. How often do you have six or more drinks on one occasion?: Never Total Score: 4 Score Reviewed/Action Taken: Yes ANTONELLA-7 AMB Questionnaire ANTONELLA-7 Date ANTONELLA - 7 assessed: 03/13/24 Feeling nervous, anxious, or on edge: 1 = Several days Not being able to stop or control worryin = Several days Worrying too much about different things: 1 = Several days Trouble relaxin = Several days Being so restless that it is hard to sit still: 1 = Several days Becoming easily annoyed or irritable: 0 = Not at all Feeling afraid as if something awful might happen: 1 = Several days Total ANTONELLA-7 score (0-4 normal; 5-9 mild; 10-14 moderate; 15-21 severe): 6 Source: Developed by Drs. Jaren Dos Santos, Trina Hernandez, Wilman Mitchell and colleagues, with an educational vin from [employer]. ANTONELLA-7 Assessment Billing ANTONELLA-7 Assessment Tool: ANTONELLA-7 Assessment 79234 Review of Systems Const Denies chills, Denies fever(s) and Denies headache(s) Eyes Denies blurry vision ENT Denies headache(s), Denies nasal discharge, Denies nasal obstruction, Denies odynophagia and Denies sinus pain Resp Denies cough and Denies hemoptysis GI Denies diarrhea, Denies odynophagia, Denies vomiting and Denies hematemesis Reports as per HPI Musc Denies abnormal gait Skin/Breast Reports as per HPI Neuro Denies Neuro-related abnormal movements, Denies Abnormal speech present, Denies abnormal gait, Denies headache(s) and Denies Sensory deficit (Neuro) Psych Denies mood swings and Denies paranoia Endo Reports as per HPI Draian/Lymph Reports as per HPI Aller/Immun Reports as per HPI Physical exam (Primary Care) Vital Signs: Last Vital Signs Pulse 85 03/13/24 15:34 BP 146/98 H 03/13/24 15:34 Pulse Ox 96 03/13/24 15:34 Oxygen Delivery Method Room Air 03/13/24 15:34 BMI result Body Mass Index 30.8 Tobacco/Smoking Status: Tobacco use Status Tobacco use date assessed 03/13/24 03/13/24 15:38 Patient Tobacco Use Status Never used Tobacco (23 years 03/13/24 15:37 ) e-Cigarette/Vaping Use Never Used 03/13/24 15:37 PHQ-9: PHQ-9 Score PHQ-9: Total score 9 03/13/24 15:50 Depression Screening Interpretation: Positive Depression Screening Follow-up: Existing condition and In treatment Thrive Assessment: Date of Thrive Assessment Date Thrive assessed 03/13/24 03/13/24 15:38 Currently or been in a relationship where the following occur: No concerns reported Const General: cooperative, comfortable and no acute distress Orientation/consciousness: patient oriented x3 HENMT Head: Yes normocephalic and Yes atraumatic Eyes General: appearance normal, both eyes and all related structures Pupils: Equal, round and reactive pupils present EOM: EOMs intact bilaterally Neck Neck: Yes supple and No lymphadenopathy Thyroid: Thyroid normal Lymphatic: no lymphadenopathy noted Resp Effort & Inspection: normal respiratory effort and able to speak in complete sentences Auscultation: clear to auscultation bilaterally Cardio Heart sounds: S1 normal heart sound present and S2 normal heart sound present GI Palpation (GI): Soft to palpation and nontender Auscultation: normal bowel sounds General: Yes no CVA tenderness Back/Spine/Pelvis Back: no CVA tenderness Skin General skin exam: elasticity normal and turgor normal Full body images: 2 1. Psoriatic patch Neuro General: patient oriented x3 and gait normal Cranial nerves: Yes Equal, round and reactive pupils present Speech: No Abnormal speech present Sensory Exam: No Sensory deficit (Neuro) Coordination: tandem gait normal and Romberg test negative Extrem General: Yes normal exam except as noted and No edema Assessment and Plan Assessment & Plan (1) Encounter for general adult medical examination with abnormal findings: Code(s): Z00.01 - Encounter for general adult medical examination with abnormal findings (2) Chest pain: Code(s): R07.9 - Chest pain, unspecified Qualifiers: Chest pain type: unspecified Qualified Code(s): R07.9 - Chest pain, unspecified (3) Elevated blood pressure reading: Code(s): R03.0 - Elevated blood-pressure reading, without diagnosis of hypertension (4) Psoriasis: Code(s): L40.9 - Psoriasis, unspecified (5) Major depression, recurrent: Code(s): F33.9 - Major depressive disorder, recurrent, unspecified Qualifiers: Active/Remission status: in full remission Qualified Code(s): F33.42 - Major depressive disorder, recurrent, in full remission (6) [place] disease: Comment: Managed by a specialist Code(s): E27.1 - Primary adrenocortical insufficiency (7) Migraine headache with aura: Code(s): G43.109 - Migraine with aura, not intractable, without status migrainosus Qualifiers: Intractability: intractable Status migrainosus presence: without status migrainosus Qualified Code(s): G43.119 - Migraine with aura, intractable, without status migrainosus Plan Physical exam appointment Patient says that when he is working in his garage sometimes he gets twinges in his chest He is concerned about condition of his heart We did the EKG today which shows normal sinus rhythm 78 beats per minute no acute ST-T findings He is now using CPAP machine as well Psoriasis: Right knee clobetasol cream sent to be used as needed Patient have limitation in range of motion of right shoulder which is chronic His blood pressure is slightly elevated today I would recommend to start monitoring it at home and keep a log Colonoscopy was 3 years ago at [facility] next 1 will be in [address] 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 that is only medication through PCP office Patient also have a chronic history of tinnitus and is getting disability [facility]. Follow-up 6 months physical exam 1 year Orders: Orders 2 Complete Blood Count Auto Diff Today E27.1 - Primary adrenocortical insufficiency, E66.09 - Other obesity due to excess calories, F33.42 - Major depressive disorder, recurrent, in full remission, G43.119 - Migraine with aura, intractable, without status migrainosus, Z00.01 - Encounter for general adult medical examination with abnormal findings Comprehensive Met. Panel Today E27.1 - Primary adrenocortical insufficiency, E66.09 - Other obesity due to excess calories, F33.42 - Major depressive disorder, recurrent, in full remission, G43.119 - Migraine with aura, intractable, without status migrainosus, Z00.01 - Encounter for general adult medical examination with abnormal findings AMB EKG-In Office Today R07.9 - Chest pain, unspecified Medications: New 2 clobetasol 0.05% 1 appl topical BID 60 grams 3RF 2 weeks [Blood pressure monitor] As directed 1 ea 0RF R03.0 - Elevated blood-pressure reading, without diagnosis of hypertension Refilled 2 bupropion HCl SR 150 mg PO BID 180 caps 1RF 90 days Coding Level of Care Code Est Pt Level 4 (88280) Est Pt Prev Care 40-64y(60371) Diagnoses Encounter for general adult medical examination with abnormal findings Z00.01 Chest pain, unspecified type R07.9 Chest pain type: unspecified Elevated blood pressure reading R03.0 Psoriasis L40.9 Recurrent major depressive disorder, in full remission F33.42 Active/Remission status: in full remission Manan disease E27.1 Intractable migraine with aura without status migrainosus G43.119 Intractability: intractable Status migrainosus presence: without status migrainosus Additional Codes ANTONELLA-7 Assessment Billing - ANTONELLA-7 Assessment Tool: ANTONELLA-7 Assessment 64957 ([id number])
== END 2024-03-13 16:08 | disposition home or self-care (01) ==
PROVIDERS: PCP Internal Medicine; Visit Provider Internal Medicine
DX: Z00.01 Encounter for general adult medical examination with abnormal findings (principal); R07.9 Chest pain, unspecified; R03.0 Elevated blood-pressure reading, without diagnosis of hypertension; F33.42 Major depressive disorder, recurrent, in full remission; E27.1 Primary adrenocortical insufficiency; L40.9 Psoriasis, unspecified; G43.119 Migraine with aura, intractable, without status migrainosus
CPT/HCPCS: 93000; 99214; 99396

== ENCOUNTER 2024-09-09 09:45 | Outpatient (AMB) | payer OTHER, SELFPAY ==
[2024-09-09 10:24] VITALS: BP 110/74; PULSE 91; O2SAT 94; BMI 33.9
--- NOTE | 2024-09-09 10:24 | A.OFFVIS_ITS ---
Vital Signs 09/09/24 10:24 Height 6 ft 3 in Weight 271 lb BMI 33.9 BP 110/74 Blood Pressure Location Rt brachial Position Sitting Pulse 91 Pulse Source Pulse Oximeter Pulse Oximetry (%) 94 Oxygen Delivery Method Room Air Intake Visit Reasons: follow up Intake Note: Patient states states about 50% of time when migraine accures tingling on rt side of face mostly in lips Allergies No Known Allergies Allergy (Verified 09/09/24 10:28) Medication List - Last Reconciled 09/09/24 by ANGEL Guardado [Blood pressure monitor As directed] bupropion HCl SR 150 mg PO BID 90 days clobetasol 0.05% 1 appl topical BID 2 weeks fludrocortisone 0.05 mg PO DAILY hydrocortisone 10 mg PO ONCE rizatriptan 5 - 10 mg (0.5 - 1 x 10 mg) PO Q2H PRN 21 days HPI Comments Details: 54-yr-old male presents for f/u visit of migraine with aura, which started during his time in college/ service. He is having 2-3 migraines every 10 days, and a heavy headedness most days of the month. May have 5-7 crystal clear headache free days per month. He has been noticing when he has his right sided visual aura, about 50% of the last 10 attacks have been a/w a sprinkling of tingling in right facial face/lips region which he describes as a light tingling/numbness during, which is not a/w facial droop or other symptoms beyond his typical migraine and tinnitus symptoms. This occurs only during the aura phase or initial phase of the migraine, and has only occurred when he has had visual aura. He may have visual aura without the right facial tingling. He continues to have photophobia. He is not currently on a preventative migraine medication. He is curious about trying Botox or Botox cream. The Rizatriptan works well about 50% of the time. It may depend on where he is or how quickly he can take it after onset of attack. He never received the gamma core. He is taking a neutropics. He can still have issues with sleep. He continues to have tinnitus. He did start using a CPAP machine, he wakes up in the middle of the night with having removed the mask. His CPAP is managed by the ID. [facility] inspire [facility], and wonders your thoughts on this. Headache questionnaire: Headache characteristics: Typically starts with seeing a kaleidoscope in his bilateral peripheral field- lasts maybe a minute (this occurs w/ about 75% of headaches). This is f/b a pressure sensation like he is wearing a hat across the right eye or a pressure just in/around the right eye. Twice, the tinnitus tone may change or pop prior to the visual change. Pain intensity: 4-5/10 when milder, 7-8/10 when more severe Prodrome symptoms: Maybe fatigue Aura: Right-sided visual aura of seeing kaleidoscopes Associated symptoms: Photophobia, phonophobia, osmophobia- some, some nausea, not right in space dizziness, brain fog, fatigue. No focal weakness, paresthesias, or autonomic s/s Postdrome: Brain fog and fatigue- for 1-3 hrs. Triggers: maybe long-distance driving, phone/electronics use Duration: 1-3 hrs or even 4-5 hrs [facility] Medical History Addisons disease Insomnia Reactive depression Back pain [place] disease Surgical History No significant past surgical history Social History Housing: House Alcohol intake: current Alcohol intake frequency: a few times a month Patient Tobacco Use Status: Never used Tobacco (23 years ) Years Smoked: 10 years e-Cigarette/Vaping Use: Never Used Second Hand Smoke Exposure: No service: Yes Current occupational status: employed Cognitive needs: No Hearing needs: No Vision needs: No Physical Exam Vital Signs: Last Vital Signs Pulse 91 09/09/24 10:24 BP 110/74 09/09/24 10:24 Pulse Ox 94 09/09/24 10:24 Oxygen Delivery Method Room Air 09/09/24 10:24 BMI result Body Mass Index 33.9 Const General: cooperative and no acute distress Orientation/consciousness: patient oriented x3 HEENT Head: Yes normocephalic Resp Effort & Inspection: normal respiratory effort and able to speak in complete sentences Neuro General: patient oriented x3, gait normal and CN's II-XI intact bilaterally Cognition (Neuro): normal cognition Motor exam (neuro): 5/5 motor strength present throughout Psych Appearance: grossly normal Mental Status: mental status grossly normal Speech and movement: Normal speech and movement present Affect: normal affect Attitude: cooperative Insight: Good insight present (Psych) Judgement: Good judgement present (Psych) Assessment & Plan Assessment & Plan (1) Migraine headache with aura: Code(s): G43.109 - Migraine with aura, not intractable, without status migrainosus Category: Medical Qualifiers: Intractability: intractable Status migrainosus presence: without status migrainosus Qualified Code(s): G43.119 - Migraine with aura, intractable, without status migrainosus (2) Tinnitus: Code(s): H93.19 - Tinnitus, unspecified ear Category: Medical Qualifiers: Laterality: bilateral Qualified Code(s): H93.13 - Tinnitus, bilateral (3) Insomnia: Code(s): G47.00 - Insomnia, unspecified Category: Medical Qualifiers: Insomnia type: due to medical condition Qualified Code(s): G47.01 - Insomnia due to medical condition (4) Obstructive sleep apnea: Code(s): G47.33 - Obstructive sleep apnea (adult) (pediatric) Category: Medical Plan For [place] and sleep difficulties: Reviewed October 2023 ENT consult note- no current treatment interventions recommended, however can consider referral back if patient continues to not tolerate CPAP or has other throat symptoms. Reviewed indications and general information related to inspire therapy for management of moderate to severe sleep apnea. Discussed that additional ENT evaluation would be needed to determine candidacy for this Tx. [facility] will [facility]. Future considerations: EEG, HST (if not completed through the [facility]). For overall headache management: Shared information resources on nonpharmacological treatment interventions, such as information on neuromodulation devices. Advised to track migraine/headache frequency. ? For acute headache treatment: Hold Rizatriptan prn- not consistently effective. Trial Eletriptan 40mg tab, 1/2 - 1 tab (20-40 mg) at onset of headache, may repeat in 2 hours. Max of 2 tabs (80 mg) per 24 hours. May adjunct with OTC Tylenol 650mg every 4 hours, Ibuprofen (liquigel) 600mg every 6 hours, or Naproxen (liquigel) 440mg every 12 hrs as needed. Patient is again advised to trial Gamma Core 2 2-minute treatments TID prn.. Previous acute migraine medication trials: Sumatriptan 100mg tab- not effective. Nurtec- not fully effective. Rizatriptan 10 mg prn- not consistently effective. Acute migraine medication contraindications: None Future consideration: Ubrelvy ? For migraine prevention medication: Reviewed that patient is recent migraine burden is consistent with chronic migraine, however I would advise him to start with 1st line migraine preventative treatments before considering Botox Tx. Patient is again advised to trial Gamma Core 2 2-minute treatments BID scheduled. Order we will need to be forwarded to the [facility].. Start Amitriptyline 10mg daily at bedtime. Potential side effects include but are not limited to fatigue, cardiac arrhythmias, mood changes. Previous migraine prevention medication trials: None Migraine prevention medication contraindications: None at this time For tinnitus: Monitor clinically f/u in 6 months or sooner prn. Medications: New amitriptyline 10 mg PO BEDTIME 30 tabs 3RF 30 days eletriptan take 1 tab at onset of headache; if no relief, may repeat 1 tab after at least 2 hrs; max = 2 tabs/24 hrs PO 12 tabs 6RF 30 days Scribe Plan - Not visible on output: Reviewed possible medication side effects, including but not limited to drowsiness, dizziness. Coding Level of Care Code Est Pt Level 4 (20958) Diagnoses Intractable migraine with aura without status migrainosus G43.119 Intractability: intractable Status migrainosus presence: without status migrainosus Tinnitus of both ears H93.13 Laterality: bilateral Insomnia due to medical condition G47.01 Insomnia type: due to medical condition Obstructive sleep apnea G47.33
== END 2024-09-09 12:10 | disposition home or self-care (01) ==
PROVIDERS: PCP Internal Medicine; Visit Provider Nurse Practitioner Family
DX: G43.119 Migraine with aura, intractable, without status migrainosus (principal); H93.13 Tinnitus, bilateral; G47.01 Insomnia due to medical condition; G47.33 Obstructive sleep apnea (adult) (pediatric)
CPT/HCPCS: 99214

== ENCOUNTER → 2025-01-25 13:37 | Outpatient (BNVA) | payer OTHER, SELFPAY | PROVIDERS: PCP Internal Medicine; Visit Provider Internal Medicine | DX: E27.1 Primary adrenocortical insufficiency (principal); Z86.0100 Personal history of colon polyps, unspecified | CPT/HCPCS: 99202 ==

== ENCOUNTER 2025-05-13 10:17 | Outpatient (AMB) | payer OTHER, SELFPAY ==
[2025-05-13 10:44] VITALS: BP 136/84; PULSE 98; RESP 18; TEMP 36.4; O2SAT 95; BMI 33.0
--- NOTE | 2025-05-13 10:44 | MHC.OFFWIV ---
Intake Vital Signs 05/13/25 10:44 Height 6 ft 3 in Weight 264 lb BMI 33.0 BP 136/84 Blood Pressure Location Lt brachial Position Sitting Respiration 18 Pulse 98 Pulse Source Pulse Oximeter Temp 97.6 F Temp Source Oral Pulse Oximetry (%) 95 Oxygen Delivery Method Room Air Intake Visit Reasons: ep sty in left eye Intake Note: Pt is here today for a walk in visit. Pt c/o sty in his L eye since Saturday morning. Patient Tobacco Use Status: Never used Tobacco (23 years ) Allergies No Known Allergies Allergy (Verified 05/13/25 10:47) HPI HPI Comments History of Present Illness Details 55 y/o Male patient who presents to the walk in clinic with c/o Left Eyelid swelling and tender to touch. He noticed his left Upper Eyelid red and swollen Saturday. He believes his Cat might have jumped on his Face. He also thinks something Bite his Eyelid. Denies vision changes. Denies headaches, dizziness or lightheadedness. He has been applying Warm compress every 20 mins and believes the swelling is going down. Denies wearing contact Lens. He does not have an eye doctor. [facility] Medical History (Updated 05/13/25 @ 11:09 by Lorie Whiteside NP) Swelling of upper eyelid Addisons disease Insomnia Reactive depression Back pain Jenkins disease Surgical History (Updated 01/25/25 @ 13:49 by CRISTO Duckworth) Hx of colonoscopy No significant past surgical history Social History Housing: House Alcohol intake: current Alcohol intake frequency: a few times a month Patient Tobacco Use Status: Never used Tobacco (23 years ) Years Smoked: 10 years e-Cigarette/Vaping Use: Never Used Second Hand Smoke Exposure: No service: Yes Current occupational status: employed Cognitive needs: No Hearing needs: No Vision needs: No Review of Systems Const All systems reviewed & are unremarkable except as noted in HPI and below Physical Exam Vital Signs: Last Vital Signs Temp 97.6 F 05/13/25 10:44 Pulse 98 05/13/25 10:44 Resp 18 05/13/25 10:44 BP 136/84 05/13/25 10:44 Pulse Ox 95 05/13/25 10:44 Oxygen Delivery Method Room Air 05/13/25 10:44 BMI result Body Mass Index 33.0 Const General: no acute distress Nutritional Appearance: overweight Orientation/consciousness: patient oriented x3 Eyes Eyelids: Yes eyelid abnormality (Upper left eyelid swelling and redness.) Conjunctivae: conjunctival abnormal left conjunctival injection and discharge (clear) Pupils: Equal, round and reactive pupils present EOM: EOMs intact bilaterally Direct Ophthalmoscopy: normal light reflex Neuro General: patient oriented x3 Cranial nerves: Yes Equal, round and reactive pupils present Assessment & Plan Assessment & Plan (1) Swelling of upper eyelid: Code(s): H02.849 - Edema of unspecified eye, unspecified eyelid Plan: There is mild Swelling and redness on left Upper Eyelid Continue using Warm compress Ordered Abx Eye drops. F/U with an Eye doctor if not better. Medications: New ciprofloxacin HCl 0.3% Put 1-2 drops in the affected eye every 2hr up to 8 times per day for 2 days; then 4 times per day for 5 days. 5 mL 0RF H02.849 - Edema of unspecified eye, unspecified eyelid Coding Level of Care Code Est Pt Level 4 (59469) Diagnoses Swelling of upper eyelid H02.849 Time Spent (min) 20
== END 2025-05-13 11:12 | disposition home or self-care (01) ==
PROVIDERS: PCP Internal Medicine; Visit Provider Nurse Practitioner Family
DX: H02.849 Edema of unspecified eye, unspecified eyelid (principal)

== ENCOUNTER → 2025-06-11 13:53 | Outpatient (AMB) | payer OTHER, SELFPAY ==
--- NOTE | 2025-06-11 13:50 | A.OFFVIS_ITS ---
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 clobetasol 0.05% 1 appl topical BID 2 weeks eletriptan take 1 tab at onset of headache; if no relief, may repeat 1 tab after at least 2 hrs; max = 2 tabs/24 hrs PO 30 days fludrocortisone 0.05 mg PO DAILY hydrocortisone 5 mg PO QPM polyethylene glycol 3350 (Miralax) 238 grams PO ONCE rizatriptan 5 - 10 mg (0.5 - 1 x 10 mg) PO Q2H PRN 21 days HPI Comments Details: 55-yr-old male presents for f/u televisit of migraine with aura and cognitive difficulties, which started during his time in college/ service. 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 He continues to have pronounced photophobia. He is noticing more brain fog during his migraine attacks, and needing to take more micro-breaks during complex tasks/work. 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 Amitriptyline caused irritability. He believes the eletriptan was not effective. The rizatriptan continues to be have variable effectiveness. He can still have issues with sleep. He continues to have tinnitus. He did start using a CPAP machine, he continues to wake up in the middle of the night with having removed the mask. [facility]. Headache questionnaire: Headache characteristics: Typically starts with seeing a kaleidoscope in his bilateral peripheral field- lasts maybe a minute (this occurs w/ about 75% of headaches). This is f/b a pressure sensation like he is wearing a hat across the right eye or a pressure just in/around the right eye. Twice, the tinnitus tone may change or pop prior to the visual change. Pain intensity: 4-5/10 when milder, 7-8/10 when more severe Prodrome symptoms: Maybe fatigue Aura: Right-sided visual aura of seeing kaleidoscopes Associated symptoms: Photophobia, phonophobia, osmophobia- some, some nausea, not right in space dizziness, brain fog, fatigue. Now facial tingling and and a bit of drooling. Postdrome: Brain fog and fatigue- for 1-3 hrs. Triggers: maybe long-distance driving, phone/electronics use Duration: 1-3 hrs or even 4-5 hrs PFSH Medical History Swelling of upper eyelid Addisons disease Insomnia Reactive depression Back pain Mccracken disease Surgical History Hx of colonoscopy No significant past surgical history Social History Housing: House Alcohol intake: current Alcohol intake frequency: a few times a month Patient Tobacco Use Status: Never used Tobacco (23 years ) Years Smoked: 10 years e-Cigarette/Vaping Use: Never Used Second Hand Smoke Exposure: No service: Yes Current occupational status: employed Cognitive needs: No Hearing needs: No Vision needs: No Physical Exam Const General: cooperative and no acute distress Orientation/consciousness: patient oriented x3 HEENT Head: Yes normocephalic Resp Effort & Inspection: normal respiratory effort and able to speak in complete sentences Neuro General: patient oriented x3 Cognition (Neuro): normal cognition Psych Appearance: grossly normal Mental Status: mental status grossly normal Speech and movement: Clear speech present Affect: normal affect Attitude: cooperative Insight: Good insight present (Psych) Judgement: Good judgement present (Psych) Telehealth Telehealth Telehealth Platform: [facility] Location of provider rendering services: practice address Location of patient: address on file Patient Identification confirmed using: Name, : Yes Telehealth method: video Patient verbally consented to treatment: Yes Patient verbally consented to billing insurance company: Yes Patient informed of any privacy concerns related to visit: Yes Minutes spent on Phone/Video with Pt.: 25 Assessment & Plan Assessment & Plan (1) Migraine headache with aura: Code(s): G43.109 - Migraine with aura, not intractable, without status migrainosus Category: Medical Qualifiers: Intractability: intractable Status migrainosus presence: without status migrainosus Qualified Code(s): G43.119 - Migraine with aura, intractable, without status migrainosus (2) Tinnitus: Code(s): H93.19 - Tinnitus, unspecified ear Category: Medical Qualifiers: Laterality: bilateral Qualified Code(s): H93.13 - Tinnitus, bilateral (3) Insomnia: Code(s): G47.00 - Insomnia, unspecified Category: Medical Qualifiers: Insomnia type: due to medical condition Qualified Code(s): G47.01 - Insomnia due to medical condition (4) Obstructive sleep apnea: Code(s): G47.33 - Obstructive sleep apnea (adult) (pediatric) Category: Medical Plan For [place] and sleep difficulties: * October 2023 ENT consult note- no current treatment interventions recommended, however can consider referral back if patient continues to not tolerate CPAP or has other throat symptoms. * [facility]cur with [facility]. * Future considerations: EEG, HST (if not completed through the [facility]). For overall headache management: * Previously information resources on nonpharmacological treatment interventions, such as information on neuromodulation devices. * Advised to track migraine/headache frequency. ? For acute headache treatment: Discontinue Rizatriptan prn- not consistently effective. Discontinue Eletriptan 40mg tab, as this was not effective Trial Gamma Core 2 2-minute treatments TID prn. Trial Ubrogepant (Ubrelvy) 100mg tab: take Ubrogepant 1/2 - 1 tab (50-100mg) by mouth at the onset of headache. * You may repeat the dose in 2 hours. Max of 2 tabs (200mg) per 24 hours. * You may take Ubrogepant with OTC Tylenol 650-1000 mg every 4-6 hours, Ibuprofen (liquid gel) 600-800mg every 6-8 hours, or Naproxen (liquid gel) 440mg every 12 hrs as needed. * Do not take Ubrogepant with or within 5 days of taking Butalbital (Fioricet or Fiorinal). * Possible adverse effects of Ubrogepant include, but are not limited to, fatigue, nausea, dry mouth, and constipation. Ubrelvy will likely require prior authorization from your insurance before you will be able to receive it from your pharmacy. ? * We will initiate the prior authorization process per your specific health insurance's requirements. * However, please note that your health insurance belongs to you, and you may also need to contact your insurance company for the prior authorization request to be processed. You may also need to speak to your insurance regarding requesting this prior authorization Previous acute migraine medication trials: Sumatriptan 100mg tab- not effective. Nurtec- not fully effective. Rizatriptan 10 mg prn- not consistently effective. Eletriptan-was not effective. Acute migraine medication contraindications: None For migraine prevention medication: Trial Gamma Core 2 2-minute treatments BID scheduled. Discontinue Amitriptyline 10mg daily at bedtime order, as this caused irritability. 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 * Once effective dose known, we can consider referral to speech/cognitive therapy Continue bupropion SR 150 mg twice a day For tinnitus: Monitor clinically f/u in 6 months or sooner prn. Medications: New dextroamphetamine-amphetamine 5 mg ER (Adderall XR) Partial Fill upon patient request. 5 - 10 mg (1 - 2 x 5 mg) PO QAM 28 caps 0RF 14 days ubrogepant (Ubrelvy) take at onset of migraine, may repeat in 2hrs (may take w/ Ibuprofen) 50 - 100 mg (0.5 - 1 x 100 mg) PO ONCE PRN 16 tabs 3RF migraine headache 30 days Discontinued amitriptyline Discontinued Reason: Doctor's Order 10 mg PO BEDTIME 30 days 30 tabs 3RF eletriptan Discontinued Reason: Doctor's Order take 1 tab at onset of headache; if no relief, may repeat 1 tab after at least 2 hrs; max = 2 tabs/24 hrs PO 30 days 12 tabs 6RF Coding Level of Care Code Tele Est Pt Level 4 (91091) Diagnoses Intractable migraine with aura without status migrainosus G43.119 Intractability: intractable Status migrainosus presence: without status migrainosus Tinnitus of both ears H93.13 Laterality: bilateral Insomnia due to medical condition G47.01 Insomnia type: due to medical condition Obstructive sleep apnea G47.33
== END ==
LOC: HO.HSMS 13:53
PROVIDERS: PCP Internal Medicine; Visit Provider Nurse Practitioner Family
DX: G43.119 Migraine with aura, intractable, without status migrainosus (principal); H93.13 Tinnitus, bilateral; G47.01 Insomnia due to medical condition; G47.33 Obstructive sleep apnea (adult) (pediatric)
CPT/HCPCS: 99214

== ENCOUNTER 2025-06-16 11:14 | Outpatient (AMB) | payer OTHER, SELFPAY ==
[2025-06-16 11:16] VITALS: BP 130/78; PULSE 83; O2SAT 98; BMI 33.1
--- NOTE | 2025-06-16 11:16 | A.OFFPC_ITS ---
Vital Signs 06/16/25 11:16 Height 6 ft 3 in Weight 265 lb BMI 33.1 BP 130/78 Blood Pressure Location Lt brachial Position Sitting Pulse 83 Pulse Source Pulse Oximeter Pulse Oximetry (%) 98 Oxygen Delivery Method Room Air Intake Visit Reasons: Meds review Allergies No Known Allergies Allergy (Verified 06/16/25 11:17) Medication List - Last Reconciled 06/16/25 by Ayaan Smalls MD [Blood pressure monitor As directed] bupropion HCl SR 150 mg PO BID 30 days dextroamphetamine-amphetamine 5 mg ER (Adderall XR) 5 - 10 mg (1 - 2 x 5 mg) PO QAM 14 days fludrocortisone 0.05 mg PO DAILY hydrocortisone 5 mg PO QPM ubrogepant (Ubrelvy) 50 - 100 mg (0.5 - 1 x 100 mg) PO ONCE PRN 30 days Tobacco use date assessed: 06/16/25 Dental Screening Dental Screen Date: 06/16/25 Did you have a dental visit in the last 12 months?: Yes Did you have a dental problem in the last 6 months where you did not have access to dental care?: No Was dental information given to patient?: Patient has dentist HPI Meds review HPI Details History of Present Illness The patient is a 55-year-old male presenting for a follow-up visit. [place] Disease: - The patient's [place] disease is man aged by an nocturnist physician, Dr. Plummer, and he takes hydrocortisone and fludrocortisone. - He reports experiencing a danielson face at times, which he attributes to his steroid medication, and acknowledges that this can also elevate his blood pressure. - He had an Addisonian crisis about a ye ar or two prior after a trip to [place]. - Recently, he experienced severe crampi ng in his legs and calves, and after consulting with Dr. Plummer, was advised to increase his water intake. - He is planning a trip to [facility] and is aware he will need to bring extra vials of liquid hydrocortisone. Migraine: - The patient is followed by neurology [facility] for migraines. - He experiences about three headaches e very 10 to 12 days, with varying severity. - Associated symptoms include visual aur a (scotoma) and recently, tingling on the right side of his face, for which he was evaluated by neurology to rule out a stroke. Sleep Apnea: - The patient has a diagnosis of sleep a pnea and has a CPAP machine. - He is non-compliant with CPAP therapy, stating it is impractical and difficult to sleep with. - [facility]. Tinnitus: - He has a long-term history of tinnitus for which he [facility] disability [facility]. - He reports that wearing his hearing ai ds improves the ringing, but he only wears them about three days a week. Prehypertension: - The patient's blood pressure is in the prehypertensive range, with a reading of 130/x mmHg today and a previous reading of 136/84 mmHg in May. Obesity: - The patient's BMI is 33.1, classifying as obese. - His weight has fluctuated, recently in creasing from a low of 251 lbs in January to 265 lbs today. - He owns a treadmill and a bike but str uggles with consistency in his exercise routine. - His lowest weight last year was 246 lb s, and his goal weight is around 225-230 lbs. . Attention Deficit Disorder: - The patient takes Adderall for ADD, wh ich is prescribed by his neurologist. - Bupropion (Wellbutrin), which he also takes, was tried for ADD but was not helpful for that purpose. Health Maintenance: - The patient was last seen in March of the previous year and missed his 6- month follow-up. - His last lab work was completed in . - He is due for a colonoscopy this year. Medical History: - Psoriasis of the right knee stable - [place]'s disease, with a past episode of Addisonian crisis - Migraine with aura - Sleep apnea - Tinnitus - Attention Deficit Disorder (ADD) - Prehypertension - Obesity - Back and shoulder pain managed with co rtisone injections Medications: - Clobetasol cream for psoriasis - Bupropion 150 mg daily - Adderall for ADD - Hydrocortisone for Manan's disease - Fludrocortisone for Manan's disease - Cortisone shots for back and shoulder pain Social History: - Family: The patient reports a happy ma rriage and has two children. - Exercise: He owns a treadmill and an e xercise bike but has difficulty with consistent use. - Diet: He drinks seltzers and had coffe e with milk this morning. - Functional Status: He receives disabil [facility]y [facility]. - Mental Health: He reports his mental h ealth is stable. Diagnostic Results: - Labs: Last performed in 2022. - Vitals: Blood pressure 130/x mmHg, meaghan ght 265 lbs, BMI 33.1. Problem List - Psoriasis of right knee - [place]'s disease - Migraine - Sleep apnea - Tinnitus - Attention Deficit Disorder (ADD) - Prehypertension - Obesity - Preventative Care: Colonoscopy due we will talk about it at his next visit for PE in 3 M - Preventative Care: Influenza vaccinati on declined Plan - A lab order was placed for a fasting b lood test. - The patient was advised to monitor his blood pressure at home due to being in the prehypertensive range. - Discussed weight management, including the need for consistent exercise, and denied a request for Ozempic. - Prescriptions were sent, bupropion. - Thyroid function will be checked with the upcoming labs. - The influenza vaccine was offered but declined by the patient. - Recommended a follow-up visit for a ph ysical exam in 3-4 months. Review of Systems - General: No fever no chills - Neurological: No headaches no dizziness - Ear nose throat: No sore throat no hearing difficulty no ear pain - Cardiovascular: No syncope, no chest pain, no palpitations - Gastrointestinal: No nausea vomiting or diarrhea - Endocrine: No polyuria polydipsia no heat intolerance - Genitourinary: No dysuria , no blood in urine Physical Exam General: No acute distress HEENT: No acute findings Neck: Supple Respiratory system: Able to talk in full sentences, no audible wheeze Cardiovascular: S1-S2 regular in rate and rhythm Gastrointestinal: No pain Extremities: No swelling of ankles 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: Alert awake oriented x3 motor intact Skin: Normal turgor PFSH Medical History Swelling of upper eyelid Addisons disease Insomnia Reactive depression Back pain Manan disease Surgical History Hx of colonoscopy No significant past surgical history Social History Housing: House Alcohol intake: current Alcohol intake frequency: a few times a month Patient Tobacco Use Status: Never used Tobacco (23 years ) Years Smoked: 10 years e-Cigarette/Vaping Use: Never Used Second Hand Smoke Exposure: No service: Yes Current occupational status: employed Cognitive needs: No Hearing needs: No Vision needs: No Questionnaire PHQ-9 Over the last 2 weeks, how often have you been bothered by any of the following problems? 1. Little interest or pleasure in doing things: several days 2. Feeling down, depressed, or hopeless: several days 3. Trouble falling or staying asleep, or sleeping too much: more than half the days 4. Feeling tired or having little energy: several days 5. Poor appetite or overeating: several days 6. Feeling bad about yourself - or that you are a failure or have let yourself or your family down: several days 7. Trouble concentrating on things, such as reading the newspaper or watching television: several days 8. Moving or speaking so slowly that other people could have noticed. Or the opposite - being so fidgety or restless that you have been moving around a lot more than usual: not at all 9. Thoughts that you would be better off or of hurting yourself in some way: not at all Total score: 8 Depression Screening Interpretation: Negative Depression Screening Done: Yes 84389 - PHQ-9 Billing: Yes Source: Developed by Drs. Jaren Dos Santos, Trina Hernandez, Wilman Mitchell and colleagues, with an educational vin from [employer]. Thrive Questionnaire Date Thrive assessed: 06/16/25 I am a: Patient What is your living situation today?: I have a steady place to live Within the past 12 months, did the food you bought not last and you didn't have the money to get more?: Never true Within the past 12 months, did you worry whether your food would run out before you got money to buy more?: Never true Do you have trouble paying for medicines?: No Do you have trouble getting transportation to medical appointments?: No Do you have trouble paying your heating and electricity bill?: No Do you have trouble taking care of your child, family member or friend?: No Do you have trouble with day-to-day activities such as bathing, preparing meals, shopping, managing finances, etc.?: No Are you currently unemployed and looking for a job?: No Are you interested in more education?: No Please select the resources that you would like help with: None Currently or been in a relationship where the following occur: No concerns reported THRIVE Score: 0 AUDIT C Alcohol Use Questionnaire (AUDIT-C) 1. How often do you have a drink containing alcohol?: 2-4 times a month 2. How many drinks containing alcohol do you have on a typical day when you are drinking?: 1 or 2 3. How often do you have six or more drinks on one occasion?: Never Total Score: 2 Score Reviewed/Action Taken: Yes ANTONELLA-7 AMB Questionnaire ANTONELLA-7 Date ANTONELLA - 7 assessed: 06/16/25 Feeling nervous, anxious, or on edge: 1 = Several days Not being able to stop or control worryin = Not at all Worrying too much about different things: 1 = Several days Trouble relaxin = Several days Being so restless that it is hard to sit still: 0 = Not at all Becoming easily annoyed or irritable: 1 = Several days Feeling afraid as if something awful might happen: 1 = Several days Total ANTONELLA-7 score (0-4 normal; 5-9 mild; 10-14 moderate; 15-21 severe): 5 Source: Developed by Drs. Jaren Dos Santos, Trina Hernandez, Wilman Mitchell and colleagues, with an educational vin from [employer]. ANTONELLA-7 Assessment Billing ANTONELLA-7 Assessment Tool: ANTONELLA-7 Assessment 37198 Physical exam (Primary Care) Vital Signs: Last Vital Signs Pulse 83 06/16/25 11:16 BP 130/78 06/16/25 11:16 Pulse Ox 98 06/16/25 11:16 Oxygen Delivery Method Room Air 06/16/25 11:16 BMI result Body Mass Index 33.1 Tobacco/Smoking Status: Tobacco use Status Tobacco use date assessed 06/16/25 06/16/25 11:18 Patient Tobacco Use Status Never used Tobacco (23 years 06/16/25 11:18 ) e-Cigarette/Vaping Use Never Used 06/16/25 11:18 PHQ-9: PHQ-9 Score PHQ-9: Total score 8 06/16/25 11:18 Depression Screening Interpretation: Negative Thrive Assessment: Date of Thrive Assessment Date Thrive assessed 06/16/25 06/16/25 11:18 Currently or been in a relationship where the following occur: No concerns reported Coding Level of Care Code Est Pt Level 4 (72476) Diagnoses Recurrent major depressive disorder, in full remission F33.42 Active/Remission status: in full remission [place] disease E27.1 Tinnitus of both ears H93.13 Laterality: bilateral Intractable migraine with aura without status migrainosus G43.119 Intractability: intractable Status migrainosus presence: without status migrainosus Psoriasis L40.9 Obstructive sleep apnea on CPAP G47.33; Z99.89 Class 1 obesity due to excess calories with serious comorbidity and body mass index (BMI) of 33.0 to 33.9 in adult E66.09; Z68.33 Obesity classification: adult class 1 (BMI 30 - 34.9) Serious obesity comorbidity presence: with serious comorbidity Body mass index: BMI 33.0-33.9 Additional Codes ANTONELLA-7 Assessment Billing - ANTONELLA-7 Assessment Tool: ANTONELLA-7 Assessment [id number] ([id number]) PHQ-9 - 00084 - PHQ-9 Billing: Yes ([id number]) Assessment & Plan Assessment & Plan (1) Major depression, recurrent: Code(s): F33.9 - Major depressive disorder, recurrent, unspecified Category: Medical Qualifiers: Active/Remission status: in full remission Qualified Code(s): F33.42 - Major depressive disorder, recurrent, in full remission (2) 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 Code(s): E27.1 - Primary adrenocortical insufficiency Category: Medical (3) Tinnitus: Code(s): H93.19 - Tinnitus, unspecified ear Category: Medical Qualifiers: Laterality: bilateral Qualified Code(s): H93.13 - Tinnitus, bilateral (4) Migraine headache with aura: Code(s): G43.109 - Migraine with aura, not intractable, without status migrainosus Category: Medical Qualifiers: Intractability: intractable Status migrainosus presence: without status migrainosus Qualified Code(s): G43.119 - Migraine with aura, intractable, without status migrainosus (5) Psoriasis: Code(s): L40.9 - Psoriasis, unspecified Category: Medical (6) Obstructive sleep apnea on CPAP: Code(s): G47.33 - Obstructive sleep apnea (adult) (pediatric); Z99.89 - Dependence on other enabling machines and devices Category: Medical (7) Obesity due to excess calories: Code(s): E66.09 - Other obesity due to excess calories Category: Medical Qualifiers: Obesity classification: adult class 1 (BMI 30 - 34.9) Serious obesity comorbidity presence: with serious comorbidity Body mass index: BMI 33.0-33.9 Qualified Code(s): E66.09 - Other obesity due to excess calories; Z68.33 - Body mass index [BMI] 33.0-33.9, adult Plan [place] Disease: - The patient's Manan's disease is managed by an nocturnist physician, Dr. Plummer, and he takes hydrocortisone and fludrocortisone. - He reports experiencing a danielson face at times, which he attributes to his steroid medication, and acknowledges that this can also elevate his blood pressure. - He had an Addisonian crisis about a year or two prior after a trip to [place]. - Recently, he experienced severe cramping in his legs and calves, and after consulting with Dr. Plummer, was advised to increase his water intake. - He is planning a trip to [facility] and is aware he will need to bring extra vials of liquid hydrocortisone. Migraine: - The patient is followed by neurology at [facility] for migraines. - He experiences about three headaches every 10 to 12 days, with varying severity. - Associated symptoms include visual aura (scotoma) and recently, tingling on the right side of his face, for which he was evaluated by neurology to rule out a stroke. Sleep Apnea: - The patient has a diagnosis of sleep apnea and has a CPAP machine. - He is non-compliant with CPAP therapy, stating it is impractical and difficult to sleep with. - [facility]. Tinnitus: - He has a long-term history of tinnitus for which he receives disability [facility]. - He reports that wearing his hearing aids improves the ringing, but he only wears them about three days a week. Prehypertension: - The patient's blood pressure is in the prehypertensive range, with a reading of 130/x mmHg today and a previous reading of 136/84 mmHg in May. Obesity: - The patient's BMI is 33.1, classifying as obese. - His weight has fluctuated, recently increasing from a low of 251 lbs in January to 265 lbs today. - He owns a treadmill and a bike but struggles with consistency in his exercise routine. - His lowest weight last year was 246 lbs, and his goal weight is around 225-230 lbs. . Attention Deficit Disorder: - The patient takes Adderall for ADD, which is prescribed by his neurologist. - Bupropion (Wellbutrin), which he also takes, was tried for ADD but was not helpful for that purpose. Health Maintenance: - The patient was last seen in March of the previous year and missed his 6-m [facility] follow-up. - His last lab work was completed in 2022. - He is due for a colonoscopy this year. Medical History: - Psoriasis of the right knee stable - [place]'s disease, with a past episode of Addisonian crisis - Migraine with aura - Sleep apnea - Tinnitus - Attention Deficit Disorder (ADD) - Prehypertension - Obesity - Back and shoulder pain managed with cortisone injections Medications: - Clobetasol cream for psoriasis - Bupropion 150 mg daily - Adderall for ADD - Hydrocortisone for [place] disease - Fludrocortisone for Manan's disease - Cortisone shots for back and shoulder pain Social History: - Family: The patient reports a happy marriage and has two children. - Exercise: He owns a treadmill and an exercise bike but has difficulty with consistent use. - Diet: He drinks seltzers and had coffee with milk this morning. - Functional Status: He receives disability for [facility]. - Mental Health: He reports his mental health is stable. Diagnostic Results: - Labs: Last performed in 2022. - Vitals: Blood pressure 130/x mmHg, weight 265 lbs, BMI 33.1. Problem List - Psoriasis of right knee - [place]'s disease - Migraine - Sleep apnea - Tinnitus - Attention Deficit Disorder (ADD) - Prehypertension - Obesity - Preventative Care: Colonoscopy due we will talk about it at his next visit for PE in 3 M - Preventative Care: Influenza vaccination declined Plan - A lab order was placed for a fasting blood test. - The patient was advised to monitor his blood pressure at home due to being in the prehypertensive range. - Discussed weight management, including the need for consistent exercise, and denied a request for Ozempic. - Prescriptions were sent, bupropion. - Thyroid function will be checked with the upcoming labs. - The influenza vaccine was offered but declined by the patient. - Recommended a follow-up visit for a physical exam in 3-4 months. Orders: Orders Complete Blood Count Auto Diff Today E27.1 - Primary adrenocortical insufficiency, F33.42 - Major depressive disorder, recurrent, in full remission, G43.119 - Migraine with aura, intractable, without status migrainosus, G47.33 - Obstructive sleep apnea (adult) (pediatric), H93.13 - Tinnitus, bilateral, L40.9 - Psoriasis, unspecified, Z99.89 - Dependence on other enabling machines and devices TSH reflex Free T4 Today E27.1 - Primary adrenocortical insufficiency, F33.42 - Major depressive disorder, recurrent, in full remission, G43.119 - Migraine with aura, intractable, without status migrainosus, G47.33 - Obstructive sleep apnea (adult) (pediatric), H93.13 - Tinnitus, bilateral, L40.9 - Psoriasis, unspecified, Z99.89 - Dependence on other enabling machines and devices Comprehensive [place]. Panel Fast Today E27.1 - Primary adrenocortical insufficiency, F33.42 - Major depressive disorder, recurrent, in full remission, G43.119 - Migraine with aura, intractable, without status migrainosus, G47.33 - Obstructive sleep apnea (adult) (pediatric), H93.13 - Tinnitus, bilateral, L40.9 - Psoriasis, unspecified, Z99.89 - Dependence on other enabling machines and devices Lipid Panel Today E27.1 - Primary adrenocortical insufficiency, F33.42 - Major depressive disorder, recurrent, in full remission, G43.119 - Migraine with aura, intractable, without status migrainosus, G47.33 - Obstructive sleep apnea (adult) (pediatric), H93.13 - Tinnitus, bilateral, L40.9 - Psoriasis, unspecified, Z99.89 - Dependence on other enabling machines and devices Medications: Changed From bupropion HCl SR 150 mg PO BID 30 days 60 caps 0RF To bupropion HCl SR 150 mg PO BID 180 caps 0RF 90 days
== END 2025-06-16 12:00 | disposition home or self-care (01) ==
LOC: HO.HMCC 11:15
PROVIDERS: PCP Internal Medicine; Visit Provider Internal Medicine
DX: F33.42 Major depressive disorder, recurrent, in full remission (principal); E27.1 Primary adrenocortical insufficiency; H93.13 Tinnitus, bilateral; G43.119 Migraine with aura, intractable, without status migrainosus; L40.9 Psoriasis, unspecified; G47.33 Obstructive sleep apnea (adult) (pediatric); Z99.89 Dependence on other enabling machines and devices; E66.09 Other obesity due to excess calories; Z68.33 Body mass index [BMI] 33.0-33.9, adult

== ENCOUNTER → 2025-06-16 11:14 | Outpatient (BNVA) | payer OTHER, SELFPAY | PROVIDERS: PCP Internal Medicine; Visit Provider Internal Medicine | DX: E27.1 Primary adrenocortical insufficiency (principal); G43.909 Migraine, unspecified, not intractable, without status migrainosus; G47.30 Sleep apnea, unspecified; F98.8 Other specified behavioral and emotional disorders with onset usually occurring in childhood and adolescence; F33.42 Major depressive disorder, recurrent, in full remission; H93.13 Tinnitus, bilateral; G43.119 Migraine with aura, intractable, without status migrainosus; L40.9 Psoriasis, unspecified; G47.33 Obstructive sleep apnea (adult) (pediatric); E66.09 Other obesity due to excess calories; Z99.89 Dependence on other enabling machines and devices; Z68.33 Body mass index [BMI] 33.0-33.9, adult | CPT/HCPCS: 96127 ==